=== PATIENT | female | born 1940 | race Caucasian/White ===

== ENCOUNTER 2018-06-13 06:48 | Outpatient (CLI) | payer MEDICARE | END 2018-06-13 06:49 | disposition EMS.NT | LOC: EMS 06:48 | PROVIDERS: ATTEND Surgery | DX: R07.89 Other chest pain (principal); M54.9 Dorsalgia, unspecified ==

== ENCOUNTER 2018-06-14 00:05 | Outpatient (CLI) | payer MEDICARE | END 2018-06-14 00:06 | disposition EMS.NT | LOC: EMS 00:05 | PROVIDERS: ATTEND Surgery | DX: R07.89 Other chest pain (principal) ==

== ENCOUNTER 2020-02-16 19:56 | Emergency (ER) | payer MEDICARE ==
[2020-02-16] MEDS ORDERED: HYDROcod/ACET 5/325 Prepack 4 PO STA (20:19)
[2020-02-16] MEDS ORDERED: HYDROcod/ACETAM 5/325 MG TABLET PO STA (20:19)
--- NOTE | 2020-02-16 20:22 | ED Physician Documentation ---
PD HPI LOWER EXT INJURY - Stated complaint Stated Complaint: R FOOT INJURY - Chief complaint Chief Complaint: Trauma Ext - History obtained from History obtained from: Patient - History of Present Illness PD HPI LOW EXT INJURY LOCATION: Right (She was going up steps and stepped wrong and basically her foot impacted hard into the step and now has pain to the medial forefoot and mid forefoot as well as the calcaneus. No other injuries. 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 - Present Medications Home Medications: Ambulatory Orders Medication Instructions Recorded Confirmed Levothyroxine [Synthroid] 188 mcg PO QDAC 03/28/13 03/28/13 Lovastatin 20 mg PO 03/28/13 03/28/13 Amlodipine Besylate 5 mg PO 10/16/13 10/16/13 Gabapentin [Neurontin] 200 mg PO DAILY 10/16/13 10/16/13 HYDROcod/ACETAM 5/325 [Vicodin 1 - 2 ea PO Q6H PRN 10/16/13 10/16/13 5/325] Hydrocodone/Acetaminophen 1 - 2 tab PO Q6H PRN #7 tablet 02/16/20 [Hydrocodone-Acetamin 5-325 mg] - Allergies Allergies/Adverse Reactions: Allergies Allergy/AdvReac Type Severity Reaction Status Date / Time gabapentin AdvReac Nausea Verified 02/16/20 20:11 - Social History Does the pt smoke?: No Smoking Status: Former smoker Does the pt drink ETOH?: No PD ED PE NORMAL - Vitals Vital signs reviewed: Yes - General General: Alert and oriented X 3, No acute distress - Extremities Extremities: Other (Diffuse nonfocal tenderness that involves the calcaneus and the midfoot bones. No deformity. No ankle tenderness. Normal pedal pulses and sensation.) - Neuro Neuro: Alert and oriented X 3, Normal speech Results - Vitals Vitals: Vital Signs - 24 hr 02/16/20 02/16/20 20:05 21:33 Temperature 36.8 C 36.8 C Heart Rate 56 L 58 L Respiratory 16 18 Rate Blood Pressure 162/97 H 175/57 H O2 Saturation 99 96 Oxygen O2 Source Room air - Rads (name of study) XR R calcaneus and foot Radiology: EMP read contemporaneously (negative) PD MEDICAL DECISION MAKING - ED course ED course: She was placed in a walking boot and up on a walker. She felt much better after hydrocodone here. Departure - Departure Disposition: 01 Home, Self Care Clinical Impression: Contusion of right foot Qualifiers: Encounter type: initial encounter Qualified Code(s): S90.31XA - Contusion of right foot, initial encounter Condition: Good Record reviewed to determine appropriate education?: Yes Instructions: ED Contusion Foot Prescriptions: Hydrocodone/Acetaminophen [Hydrocodone-Acetamin 5-325 mg] 1 - 2 tab PO Q6H PRN #7 tablet PRN Reason: Pain Comments: Recheck with your doctor in 1 week if not better. Return if worse. Discharge Date/Time: 02/16/20 21:34
--- NOTE | 2020-02-16 21:06 | XRAY Report ---
PROCEDURE: Calcaneus RT INDICATIONS: foot inj TECHNIQUE: Two views of the calcaneus were acquired. COMPARISON: None FINDINGS: Bones: No fractures or dislocations. No suspicious bony lesions. Soft tissues: No suspicious calcifications. Achilles tendon appears normal. IMPRESSION: No acute fracture. No osseous lesion. If symptoms and/or clinical suspicion for pathology continue, f urther assessment with repeat plain films, or advanced imaging (e.g., CT, MRI, or bone scan) is recom mended for further assessment. Reviewed by: Cezar Calderón MD on 02/16/2020 9:04 PM PDT Approved by: Cezar Calderón MD on 02/16/2020 9:04 PM PDT Station ID: [id number]
--- NOTE | 2020-02-16 21:06 | XRAY Report ---
PROCEDURE: Foot 3 View RT INDICATIONS: slipped fell, c/o R heel pain TECHNIQUE: 3 views of the foot were acquired. COMPARISON: None FINDINGS: Bones: No fractures or dislocations. No suspicious bony lesions. Soft tissues: No tibiotalar joint effusion. Achilles tendon appears normal. IMPRESSION: No acute fracture. No osseous lesion. If symptoms and/or clinical suspicion for pathology continue, f urther assessment with repeat plain films, or advanced imaging (e.g., CT, MRI, or bone scan) is recom mended for further assessment. Reviewed by: Cezar Calderón MD on 02/16/2020 9:04 PM PDT Approved by: Cezar Calderón MD on 02/16/2020 9:04 PM PDT Station ID: [id number]
[2020-02-16 21:34] VITALS: BP 175/57
== END 2020-02-16 21:34 | disposition home or self-care (01) ==
LOC: ED 19:56
DX: S90.31XA Contusion of right foot, initial encounter (principal); W22.09XA Striking against other stationary object, initial encounter; Y93.89 Activity, other specified; Z87.891 Personal history of nicotine dependence
CPT/HCPCS: 73630; 73650; 99283; A9270

== ENCOUNTER 2020-10-10 14:06 | Emergency (ER) | payer MEDICARE ==
[2020-10-10 14:16] VITALS: BP 176/68
[2020-10-10] MEDS ORDERED: TETANUS/DIPHTHERIA/PERTUSSIS 0.5 ML SYRINGE IM ONE (14:19)
[2020-10-10] MEDS ORDERED: BUFFERED LIDOCAINE 10 ML SYRINGE SUBQ STA (14:19)
[2020-10-10] MEDS ORDERED: HYDROcod/ACETAM 5/325 MG TABLET PO STA (14:19)
--- NOTE | 2020-10-10 14:20 | ED Physician Documentation ---
PD HPI UPPER EXT INJURY - Stated complaint Stated Complaint: GLF, RT ARM INJURY - Chief complaint Chief Complaint: Trauma Ext - History obtained from History obtained from: Patient (Had a mechanical slip and fall going down on the gravel on the right elbow. No other injuries. Pain is significant though. Last tetanus is unknown. 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 - Present Medications Home Medications: Ambulatory Orders Medication Instructions Recorded Confirmed Levothyroxine [Synthroid] 175 mcg PO QDAC 03/28/13 03/28/13 Lovastatin 20 mg PO DAILY 03/28/13 03/28/13 Amlodipine Besylate 5 mg PO 10/16/13 10/16/13 Cholecalciferol [Vitamin D3] 5,000 unit 10/10/20 10/10/20 HYDROcod/ACETAM 5/325 [[place] 5/325] 1 - 2 tab PO Q6H PRN #10 tablet 10/10/20 Meclizine HCl [Antivert] 1 tablet PO Q6H PRN 10/10/20 10/10/20 Primidone [Mysoline] 50 mg PO 10/10/20 cephALEXin [Keflex] 500 mg PO Q6H #20 cap 10/10/20 - Allergies Allergies/Adverse Reactions: Allergies Allergy/AdvReac Type Severity Reaction Status Date / Time gabapentin AdvReac Nausea Verified 10/10/20 14:16 - Social History Does the pt smoke?: No Smoking Status: Former smoker Does the pt drink ETOH?: No PD ED PE NORMAL - Vitals Vital signs reviewed: Yes - General General: Alert and oriented X 3, No acute distress - Neck Neck: Supple, no meningeal sign, No bony TTP - Extremities Extremities: Other (She has a deep laceration over the right olecranon, pain with flexion of the elbow. Looks as though the laceration is down into the olecranon bursa. There is also some scraping along the medial forearm. No tenderness at the wrist or shoulder.) - Neuro Neuro: Alert and oriented X 3, Normal speech Results - Vitals Vitals: Vital Signs - 24 hr 10/10/20 14:12 Temperature 36.5 C Heart Rate 72 Respiratory 16 Rate Blood Pressure 176/68 H O2 Saturation 99 Oxygen O2 Source Room air Procedures - Laceration (location) R elbow Length in cm: 2 Wound type: Linear, Stellate, Contaminated Anesthesia: Lidocaine 1%, With bicarb Wound preparation: Hibiclens, Irrigated copiously NS Skin layer closure: Nylon, Steri strips, Interrupted, Size #-0 - enter number (4-0), Sutures - enter # (4) Other: Patient tolerated well, No complications, Neurovascular intact, Tetanus booster given PD MEDICAL DECISION MAKING - ED course ED course: 80-year-old woman with deep laceration over the right olecranon. Does not appear to have bony involvement on x-ray. Likely intrusion onto the olecranon bursa and as such antibiotics were given after thorough washout and skin closure. Departure - Departure Disposition: 01 Home, Self Care Clinical Impression: Laceration of elbow Condition: Good Record reviewed to determine appropriate education?: Yes Instructions: ED Laceration Ext Sutr Stap Tape Prescriptions: cephALEXin [Keflex] 500 mg PO Q6H #20 cap HYDROcod/ACETAM 5/325 [[place] 5/325] 1 - 2 tab PO Q6H PRN #10 tablet PRN Reason: Pain Comments: Come back for any signs of infection which would include: Redness, swelling, drainage, increased pain, or fevers. You can wash it soap and water. Keep it covered and moist with bacitracin ointment which is available over the counter; avoid neosporin. Follow-up with your physician in about 14 days for suture removal. If you would prefer not to go all the way to [place] for suture removal, we do have a walk-in clinic in [place], just north of [facility]. The address is: [address] [place] [address].
[2020-10-10] MEDS ORDERED: cephALEXin 250 MG CAPSULE PO STA (14:51)
--- NOTE | 2020-10-10 15:00 | XRAY Report ---
PROCEDURE: Elbow 3 View RT INDICATIONS: elbow inj TECHNIQUE: 3 views of the elbow were acquired. COMPARISON: None FINDINGS: Bones: No fractures or dislocations. No suspicious bony lesions. Mild degenerative changes of the elbow. Soft tissues: No elbow joint effusion. No suspicious soft tissue calcifications. Likely small enth esophytes are noted at the medial and lateral epicondyles. Recommend correlation for epicondylitis. IMPRESSION: No acute osseous abnormality. Reviewed by: Ryan Mcmahan DO on 10/10/2020 1:59 PM [facility] Approved by: Ryan Mcmahan DO on 10/10/2020 1:59 PM [facility] Station ID: [id number]
== END 2020-10-10 15:05 | disposition home or self-care (01) ==
LOC: ED 14:06
DX: S51.011A Laceration without foreign body of right elbow, initial encounter (principal); W18.30XA Fall on same level, unspecified, initial encounter; Y93.H2 Activity, gardening and landscaping; I10 Essential (primary) hypertension; Z23 Encounter for immunization
CPT/HCPCS: 12001; 73080; 90471; 90715; 99283; A9270

== ENCOUNTER 2021-04-10 09:36 | Outpatient (CLI) | payer MEDICARE, OTHER ==
[2021-04-10 16:29] LABS: CREATININE 0.8 mg/dL (0.4-1.0)
[2021-04-10 16:39] LABS: CALCIUM 9.9 mg/dL (8.5-10.3); POTASSIUM 4.2 mmol/L (3.5-5.0)
== END 2021-04-10 09:37 | disposition home or self-care (01) ==
LOC: LAB.S 09:36
PROVIDERS: ATTEND Family Medicine Sports Medicine
DX: I10 Essential (primary) hypertension (principal); E03.9 Hypothyroidism, unspecified
CPT/HCPCS: 36415; 80048; 84443

== ENCOUNTER 2021-06-15 18:59 | Emergency (ER) | payer MEDICARE, OTHER ==
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
[2021-06-15] MEDS ORDERED: LIDOCAINE OINTMENT 5% 35.44 GM TUBE TOP STA (20:15)
[2021-06-15] MEDS ORDERED: HYDROcod/ACET 5/325 Prepack 4 PO STA (20:15)
[2021-06-15] MEDS ORDERED: HYDROcod/ACETAM 5/325 MG TABLET PO STA (20:15)
[2021-06-15] MEDS ORDERED: IBUPROFEN 600 MG TABLET PO STA (20:15)
[2021-06-15 21:09] VITALS: BP 159/85
== END 2021-06-15 21:11 | disposition home or self-care (01) ==
LOC: ED 18:59
DX: T22.1 Burn of first degree of shoulder and upper limb, except wrist and hand (principal); T20.17XA Burn of first degree of neck, initial encounter; T21.11XA Burn of first degree of chest wall, initial encounter; T20.19XA Burn of first degree of multiple sites of head, face, and neck, initial encounter; X10.2XXA Contact with fats and cooking oils, initial encounter; Y93.G3 Activity, cooking and baking; I10 Essential (primary) hypertension
CPT/HCPCS: 99282; 99283; A9270

== ENCOUNTER 2023-04-03 08:00 | Outpatient (CLI) | payer MEDICARE, OTHER ==
--- NOTE | 2023-04-03 10:29 | XRAY Report ---
PROCEDURE: Wrist 4 View RT INDICATIONS: SPRAIN OF RIGHT WRIST TECHNIQUE: 4 views of the wrist were acquired. COMPARISON: None. FINDINGS: Bones: No fractures or dislocations. Mild first CMC and STT joint degenerative changes. Soft tissues: No suspicious soft tissue calcifications. IMPRESSION: No acute bony abnormality. If there is anatomic snuff box tenderness, consider wrist immobilization a nd repeat radiographs in 10-14 days or cross-sectional imaging now. If pain persists with conservativ e management, consider repeat radiographs in 10-14 days or cross-sectional imaging. Reviewed by: Juan Reeder MD on 04/03/2023 10:28 AM PDT Approved by: Juan Reeder MD on 04/03/2023 10:28 AM PDT Station ID: [id number]
--- NOTE | 2023-04-03 10:36 | XRAY Report ---
PROCEDURE: Elbow 3 View RT INDICATIONS: CONTUSION OF RIGHT ELBOW TECHNIQUE: 3 views of the elbow were acquired. COMPARISON: 10/10/2020 FINDINGS: Bones: No acute fractures or dislocations. No suspicious bony lesions. Soft tissues: No effusion. No suspicious soft tissue calcifications. IMPRESSION: No acute bony abnormality. If pain persists with conservative management, consider repeat radiographs in 10-14 days or cross-sectional imaging. Reviewed by: Juan Reeder MD on 04/03/2023 10:34 AM PDT Approved by: Juan Reeder MD on 04/03/2023 10:34 AM PDT Station ID: [id number]
--- NOTE | 2023-04-03 10:37 | XRAY Report ---
PROCEDURE: Shoulder 3 View RT INDICATIONS: STRAIN OF RIGHT SHOULDER TECHNIQUE: 3 views of the shoulder were acquired. COMPARISON: None. FINDINGS: Bones: No fractures or dislocations. No suspicious bony lesions. Visualized ribs appear intact. Soft tissues: No suspicious soft tissue calcifications. IMPRESSION: No acute bony abnormality. If pain persists with conservative management, consider repeat radiographs in 10-14 days or cross-sectional imaging. Reviewed by: Juan Reeder MD on 04/03/2023 10:36 AM PDT Approved by: Juan Reeder MD on 04/03/2023 10:36 AM PDT Station ID: [id number]
== END 2023-04-03 23:59 | disposition home or self-care (01) ==
LOC: DI.S 08:00
PROVIDERS: ATTEND Emergency Medicine
DX: S46.011A Strain of muscle(s) and tendon(s) of the rotator cuff of right shoulder, initial encounter (principal); M18.11 Unilateral primary osteoarthritis of first carpometacarpal joint, right hand; M19.031 Primary osteoarthritis, right wrist; S50.01XA Contusion of right elbow, initial encounter

== ENCOUNTER 2023-06-14 05:36 | Outpatient (CLI) | payer MEDICARE | END 2023-06-14 05:37 | disposition critical access hospital (66) | LOC: EMS 05:36 | DX: R07.9 Chest pain, unspecified (principal); I48.91 Unspecified atrial fibrillation | CPT/HCPCS: A0425; A0427 ==

== ENCOUNTER 2023-06-14 06:07 | Emergency (ER) | payer MEDICARE, OTHER ==
[2023-06-14] MEDS ORDERED: ONDANSETRON 4 MG/2 ML VIAL IVP STA (06:29)
[2023-06-14 06:34] LABS: BASOPHILS # (AUTO) 0.1 10^3/uL (0.0-0.1); BASOPHILS % (AUTO) 0.7 %; EOSINOPHILS # (AUTO) 0.1 10^3/uL (0.0-0.7); EOSINOPHILS % (AUTO) 1.6 %; HGB - HEMOGLOBIN 11.8 g/dL (12.0-16.0); LYMPHOCYTES # (AUTO) 1.9 10^3/uL (1.5-3.5); LYMPHOCYTES % (AUTO) 22.4 %; MEAN CORPUSCULAR HGB CONC 31.1 g/dL (32.0-36.0); MEAN CORPUSCULAR VOLUME 99.7 fL (81.0-99.0); MEAN PLATELET VOLUME 9.7 fL (7.9-10.8); MONOCYTES # (AUTO) 0.6 10^3/uL (0.0-1.0); MONOCYTES % (AUTO) 7.1 %; NEUTROPHILS # (AUTO) 5.7 10^3/uL (1.5-6.6); NEUTROPHILS % (AUTO) 67.8 %; PLT - PLATELET COUNT 354 10^3/uL (130-450); RED BLOOD COUNT 3.81 10^6/uL (4.20-5.40); RED CELL DISTRIBUTION WIDTH 12.4 % (12.0-15.0); WHITE BLOOD COUNT 8.3 x10^3/uL (4.8-10.8)
[2023-06-14 06:45] LABS: ALBUMIN 3.9 g/dL (3.2-5.5); ALBUMIN/GLOBULIN RATIO 1.4 (1.0-2.2); BILIRUBIN,TOTAL 0.8 mg/dL (0.2-1.0); CALCIUM 9.1 mg/dL (8.5-10.3); CREATININE 0.8 mg/dL (0.6-1.3); POTASSIUM 4.1 mmol/L (3.5-4.5); TOTAL PROTEIN 6.6 g/dL (6.4-8.9)
--- NOTE | 2023-06-14 07:28 | ED Physician Documentation ---
PD HPI CHEST PAIN - Stated complaint Stated Complaint: CP - Chief complaint Chief Complaint: Cardiac - History obtained from History obtained from: Patient - Additional information Additional information: BIBA. Patient woke from sleep with left chest pain without radiation. She rated the pain 9 (of 10) for EMS and they administered 100mg IV fentanyl which resulted in resolution of the chest pain. However, she then had n/v for which she was given 4mg IV zofran. On my HPI, it is not clear if she was having n/v before the fentanyl was given. Patient denies h/o similar chest pain. She was diagnosed with atrial fibrillation 6 months ago and was prescribed (and is still taking) eliquis. She denies fever, cough, dyspnea, leg swelling. There is no pleuritic component to the pain nor any other apparent exacerbating factors. Review of Systems Cardiac: reports: Chest pain / pressure. denies: Palpitations, Pedal edema, Calf pain Respiratory: reports: Reviewed and negative GI: reports: Nausea, Vomiting. 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 - Present Medications Home Medications: Ambulatory Orders Medication Instructions Recorded Confirmed Levothyroxine [Synthroid] 175 mcg PO QDAC 03/28/13 06/14/23 Lovastatin 20 mg PO DAILY 03/28/13 03/28/13 Amlodipine Besylate 5 mg PO DAILY 10/16/13 06/14/23 Cholecalciferol [Vitamin D3] 2,000 unit PO DAILY 10/10/20 06/14/23 HYDROcod/ACETAM 5/325 [[place] 5/325] 1 - 2 tab PO Q6H PRN #10 tablet 10/10/20 Meclizine HCl [Antivert] 1 tablet PO Q6H PRN 10/10/20 06/14/23 Primidone [Mysoline] 50 mg PO 10/10/20 HYDROcod/ACETAM 5/325 [[place] 5/325] 1 ea PO Q6H PRN #10 tablet 06/15/21 Anastrozole 1 mg PO DAILY 06/14/23 06/14/23 Apixaban [Eliquis] 5 mg PO BID 06/14/23 06/14/23 Propranolol ER [Inderal LA] 80 mg PO DAILY 06/14/23 06/14/23 lisinopriL [Lisinopril] 10 mg PO DAILY 06/14/23 06/14/23 - Allergies Allergies/Adverse Reactions: Allergies Allergy/AdvReac Type Severity Reaction Status Date / Time gabapentin AdvReac Nausea Verified 06/14/23 06:49 - Social History Does the pt smoke?: No Smoking Status: Never smoker Does the pt drink ETOH?: No Does the pt have substance abuse?: No - Immunizations Immunizations are current?: No Immunizations: TDAP >10years/unknown - POLST Patient has POLST: No PD ED PE NORMAL - Vitals Vital signs reviewed: Yes - General General: Alert and oriented X 3, No acute distress, Well developed/nourished - Cardiac Cardiac: RRR, No murmur, No gallop, No rub - Respiratory Respiratory: No respiratory distress, Clear bilaterally - Abdomen Abdomen: Soft, Non tender - Derm Derm: Normal color, Warm and dry - Extremities Extremities: No edema Results - Vitals Vitals: Oxygen O2 Source Room air - EKG (time done) No standard instances EKG releavant findings:: EKG personally interpreted by author of this note. Relevant findings are: Rate: Rate (enter#) (70) Rhythm: Atrial fibrillation [place]: Normal Intervals: Prolonged QT (borderline) - Labs Labs: Laboratory Tests 06/14/23 06/14/23 06/14/23 06:25 06:25 06:25 WBC 8.3 RBC 3.81 L Hgb 11.8 L Hct 38.0 MCV 99.7 H MCH 31.0 MCHC 31.1 L RDW 12.4 Plt Count 354 MPV 9.7 Neut # (Auto) 5.7 Lymph # (Auto) 1.9 Gage # (Auto) 0.6 Eos # (Auto) 0.1 Baso # (Auto) 0.1 Absolute Nucleated RBC 0.00 Nucleated RBC % 0.0 Sodium 140 Potassium 4.1 Chloride 108 Carbon Dioxide 25 Anion Gap 7.0 BUN 13 Creatinine 0.8 Estimated GFR (MDRD) 69 L Glucose 167 H Calcium 9.1 Total Bilirubin 0.8 AST 12 ALT 11 Alkaline Phosphatase 75 Troponin I High Sens 3.7 Total Protein 6.6 Albumin 3.9 Globulin 2.7 Albumin/Globulin Ratio 1.4 Lipase 17 - Rads (name of study) chest xray Relevant Findings:: Prelim report reviewed, See rad report PD Medical Decision Making - ED course Complexity details: reviewed results, re-evaluated patient, considered differential, d/w patient ED course: No concerning nor diagnostic findings on EKG. CXR shows mild cardiomegaly and findings s/o mild CHF; patient is not c/o dyspnea and is clear to auscultation bilaterally and thus the CXR findings can be reevaluated in outpatient setting. No concerning findings on CBC, and ER abdominal panel is normal except for noncontributory finding of mild hyperglycemia (167). Normal hs-cTn (3.7). She is given 4mg IV zofran (in addition to 4mg en route by EMS) for residual nausea. On reevaluation, she is in NAD and reports feeling much improved. Results d/w patient. Etiology of symptoms is not apparent at this time. She is given take- home pack of zofran and e-prescribed same. Return precautions reviewed. Advised to follow up with PMD for reevaluation. Departure - Departure Disposition: 01 Home, Self Care Clinical Impression: Chest pain Qualifiers: Chest pain type: unspecified Qualified Code(s): R07.9 - Chest pain, unspecified Condition: Good Instructions: ED Chest Pain Atypical Unkn Cause Follow-Up: HOA ZARCO MD [Primary Care Provider] - Comments: There were no concerning nor diagnostic findings on the test performed while in the emergency department, including blood tests, EKG, and the chest x-ray. The cause of your symptoms is not apparent at this time. Contact your primary care provider this morning to arrange for next available appointment for reevaluation. Forms: PCP List Discharge Date/Time: 06/14/23 08:30
[2023-06-14] MEDS ORDERED: ONDANSETRON ODT 4 MG Prepack 2 TL PRN (07:52)
--- NOTE | 2023-06-14 07:57 | XRAY Report ---
PROCEDURE: Chest 2 View X-Ray INDICATIONS: chest pain TECHNIQUE: 2 views of the chest were acquired. COMPARISON: Chest x-ray, 10/16/2013. FINDINGS: Surgical changes and devices: None. Lungs and pleura: No pleural effusions or pneumothorax. Mild interstitial infiltrates. Mediastinum: Mediastinal contours appear normal. Heart size is enlarged. Bones and chest wall: No suspicious bony lesions. Overlying soft tissues appear unremarkable. IMPRESSION: 1. Mild cardiomegaly. 2. Mild interstitial infiltrates suggesting mild CHF. Findings are concordant with preliminary interpretation provided by [facility]. Reviewed by: Treva Sheffield MD on 06/14/2023 7:56 AM PST Approved by: Treva Sheffield MD on 06/14/2023 7:56 AM PST Station ID: [id number]
[2023-06-14 08:21] VITALS: BP 132/76; O2SAT 100
== END 2023-06-14 08:30 | disposition home or self-care (01) ==
LOC: EDUNIT# → ED 06:07
DX: R07.9 Chest pain, unspecified (principal); I48.91 Unspecified atrial fibrillation; I10 Essential (primary) hypertension; Z79.01 Long term (current) use of anticoagulants
CPT/HCPCS: 36415; 80053; 83690; 84484; 85025; 93005; 96374; 99283

== ENCOUNTER 2023-06-28 08:00 | Outpatient (CLI) | payer MEDICARE ==
--- NOTE | 2023-06-28 16:25 | XRAY Report ---
PROCEDURE: Abdomen Acute INDICATIONS: CONSTIPATION AND BLOATING TECHNIQUE: 2 views of the abdomen were acquired. COMPARISON: None. FINDINGS: Surgical changes and devices: None. Chest: Lungs are clear. Heart size is normal. No pleural effusions. No pneumoperitoneum. Bowel: No pneumoperitoneum. The bowel gas pattern is nonobstructive. Moderate colonic stool. Soft tissues: No masses; visualized solid organ contours appear normal in size. No suspicious abdom inal calcifications. Bones: No suspicious bony abnormalities. IMPRESSION: Constipation without obstruction. Reviewed by: Jessica Estrada MD on 06/28/2023 4:24 PM PST Approved by: Jessica Estrada MD on 06/28/2023 4:24 PM [facility] Station ID: [id number]
== END 2023-06-28 23:59 | disposition home or self-care (01) ==
LOC: DI.S 08:00
PROVIDERS: ATTEND Registered Nurse
DX: K59.00 Constipation, unspecified (principal); R14.0 Abdominal distension (gaseous)

== ENCOUNTER 2024-01-19 07:00 | Outpatient (CLI) | payer MEDICARE ==
--- NOTE | 2024-01-19 16:42 | XRAY Report ---
PROCEDURE: Shoulder 2+V RT INDICATIONS: RIGHT SHOULDER STRAIN TECHNIQUE: 3 views of the shoulder were acquired. COMPARISON: None. FINDINGS: Bones: No fractures or dislocations. Moderate acromioclavicular joint and glenohumeral joint osteoar thritic changes are seen. No suspicious bony lesions. Visualized ribs appear intact. Soft tissues: No suspicious soft tissue calcifications. The visualized lungs are within normal limi ts. IMPRESSION: No acute bony abnormality. Moderate right shoulder joint osteoarthritis. No gross soft tissue abnormalities. Reviewed by: Erick Paez MD on 01/19/2024 4:41 PM PDT Approved by: Erick Paez MD on 01/19/2024 4:41 PM PDT Station ID: [id number]
== END 2024-01-19 23:59 | disposition home or self-care (01) ==
LOC: DI.S 07:00
PROVIDERS: ATTEND Physician Assistant Medical
DX: S43.491A Other sprain of right shoulder joint, initial encounter (principal); M19.011 Primary osteoarthritis, right shoulder